=== PATIENT | female | born 1950 | race Caucasian/White ===

== ENCOUNTER → 2021-03-27 13:47 | Outpatient (CLI) | payer MEDICARE, OTHER, SELFPAY ==
--- NOTE | 2021-03-27 13:58 | RAD_ITS ---
STUDY: X-RAY - CERVICAL SPINE REASON FOR EXAM: Female, 70 years old. NECK PAIN TECHNIQUE: 4 view(s) of the cervical spine were obtained. COMPARISON: None FINDINGS: Normal anterior atlantoaxial articulation. Normal odontoid process. There is straightening of the normal cervical lordosis. There is multi-level endplate spondylosis. There is multi-level degenerative disc disease with multilevel disc space narrowing. Facet joint osteoarthritis. The soft tissue structures are unremarkable. RAD/Cerv Spine 2 or 3 Views IMPRESSION: Straightening of the normal cervical lordosis. Multilevel disc space narrowing and spondylosis. Electronically Signed: Ankit Mosher MD at 13:51 EDT , Service support ,
== END ==
PROVIDERS: PCP Nurse Practitioner Family; Referring Provider Anesthesiology Pain Medicine; Visit Provider Anesthesiology Pain Medicine
DX: M54.2 Cervicalgia (principal)
CPT/HCPCS: 72040

== ENCOUNTER → 2021-05-23 13:01 | Outpatient (CLI) | payer MEDICARE, OTHER, SELFPAY ==
--- NOTE | 2021-05-23 13:14 | MRI_ITS ---
EXAM: MR Lumbar Spine Without Intravenous Contrast CLINICAL INDICATION: 70 years old, Female; BACK PAIN/ LEG PAIN TECHNIQUE: Multiplanar and multisequence MR images of the lumbar spine without intravenous contrast. This report was created using [employer] report [employer] technology. COMPARISON: None. FINDINGS: Vertebrae: Portable changes in the endplates of the lower lumbar spine. Hemangiomas in T10 and L2. Degenerative facet arthropathy mid and lower lumbar spine. Modic changes in the endplates of the lower lumbar spine. Vertebral body heights are preserved. Normal alignment. No spondylolisthesis. There is preservation of the normal lumbar lordosis. Spinal cord: Conus medullaris tip at L1. Soft tissues: Unremarkable. DISCS/SPINAL CANAL/NEURAL FORAMINA: L1-L2: Unremarkable. Normal disc height and morphology. Normal spinal canal, lateral recesses and neuroforamina. L2-L3: Mild spinal canal stenosis at L2-L3 due to a degenerative disc bulge, ligamentum flavum and facet hypertrophy. L3-L4: Moderate spinal canal stenosis at L3-L4 due to a degenerative disc bulge, ligamentum flavum and facet hypertrophy. L4-L5: Severe spinal canal stenosis at L4-L5 due to a degenerative disc bulge, ligamentum flavum and facet hypertrophy. L5-S1: Moderate spinal canal stenosis at L5-S1 due to a degenerative disc bulge, ligamentum flavum and facet hypertrophy. Moderate right neural foraminal stenosis at L5-S1 due to a degenerative disc bulge and bony hypertrophy. Moderate left neural foraminal stenosis at L5-S1 due to a degenerative disc bulge and bony hypertrophy. MRI/Spine Lumbar (Routine) IMPRESSION: 1. Mild spinal canal stenosis at L2-L3 due to a degenerative disc bulge, ligamentum flavum and facet hypertrophy. 2. Moderate spinal canal stenosis at L3-L4 due to a degenerative disc bulge, ligamentum flavum and facet hypertrophy. 3. Severe spinal canal stenosis at L4-L5 due to a degenerative disc bulge, ligamentum flavum and facet hypertrophy. 4. Moderate spinal canal stenosis at L5-S1 due to a degenerative disc bulge, ligamentum flavum and facet hypertrophy. 5. Moderate right neural foraminal stenosis at L5-S1 due to a degenerative disc bulge and bony hypertrophy. 6. Moderate left neural foraminal stenosis at L5-S1 due to a degenerative disc bulge and bony hypertrophy. ASSESSMENT: ABNORMAL report - There are abnormal findings in this report which may be related or unrelated to the reason for the exam. Electronically Signed: Miguel Angel Zambrano MD at 0:03 EDT Tel , Service support ,
== END ==
PROVIDERS: PCP Nurse Practitioner Family; Referring Provider Anesthesiology Pain Medicine; Visit Provider Anesthesiology Pain Medicine
DX: M54.9 Dorsalgia, unspecified (principal); M79.604 Pain in right leg
CPT/HCPCS: 72148

== ENCOUNTER 2021-11-04 12:41 | Outpatient (CLI) | payer MEDICARE, OTHER, SELFPAY ==
[2021-11-04 13:55] LABS: Amphetamine Urine VISTA NEGATIVE (<1000 ng/mL); Barbiturate Urine VISTA NEGATIVE (< 200 ng/mL); Benzodiazepine Urine VISTA NEGATIVE (< 200 ng/mL); Cocaine Urine VISTA NEGATIVE (< 300 ng/mL); Ecstacy Urine VISTA NEGATIVE (< 500 ng/mL); Methadone Urine VISTA NEGATIVE (< 300 ng/mL); PCP Urine VISTA NEGATIVE (< 25 ng/mL); THC Urine VISTA NEGATIVE (< 50 ng/mL); Vista UDS pH Range 5
== END 2021-11-04 23:59 | disposition home or self-care (01) ==
PROVIDERS: PCP Nurse Practitioner Family; Referring Provider Anesthesiology Pain Medicine; Visit Provider Anesthesiology Pain Medicine
DX: F11.20 Opioid dependence, uncomplicated (principal)
CPT/HCPCS: 80307

== ENCOUNTER → 2022-07-10 | Outpatient (CLI) | payer MEDICARE, OTHER, SELFPAY ==
[2022-07-10 17:20] LABS: Amphetamine Urine VISTA NEGATIVE (<1000 ng/mL); Barbiturate Urine VISTA NEGATIVE (< 200 ng/mL); Benzodiazepine Urine VISTA NEGATIVE (< 200 ng/mL); Cocaine Urine VISTA NEGATIVE (< 300 ng/mL); Ecstacy Urine VISTA NEGATIVE (< 500 ng/mL); Methadone Urine VISTA NEGATIVE (< 300 ng/mL); PCP Urine VISTA NEGATIVE (< 25 ng/mL); THC Urine VISTA NEGATIVE (< 50 ng/mL); Vista UDS pH Range 4
== END | disposition home or self-care (01) ==
PROVIDERS: PCP Nurse Practitioner Family; Visit Provider Anesthesiology Pain Medicine
DX: F11.20 Opioid dependence, uncomplicated (principal)
CPT/HCPCS: 80307

== ENCOUNTER → 2023-05-19 | Outpatient (CLI) | payer MEDICARE, OTHER, SELFPAY ==
--- NOTE | 2023-05-19 11:00 | PET_ITS ---
EXAMINATION: FDG PET-CT INDICATIONS: A 72-year-old female with [place] cell carcinoma presenting for apparent initial staging examination. COMPARISON EXAMINATION: None available. INDEX LESION SIZE SUV INTERPRETATION Left hemipelvis, left inguinal region 28.9 mm largest 8.2 max Fulfills quantitative criteria for viable neoplasm. Right iliac wing 5.2 max Fulfills quantitative criteria for viable neoplasm. TECHNIQUE: Following the intravenous administration of 14.90 mCi of F-18 deoxyglucose via the left antecubital fossa, multiplanar image acquisitions of the head, neck, chest, abdomen and pelvis to level of mid-thigh, lower extremities obtained at one hour post radiopharmaceutical administration contemporaneously interpreted with the current CT of the head, neck, chest, abdomen and pelvis to level of mid-thigh, lower extremities dated 05/19/23 via coregistration reveal: SERUM GLUCOSE LEVEL: 153 mg/dl. HEIGHT: 60 inches. WEIGHT: 160 lbs. FINDINGS: Head/Neck: There is no evidence of abnormal increased glucose metabolism in the pharyngeal mucosal space, parapharyngeal space, bilateral-lateral and anterior neck, hypopharynx and distribution of the laryngeal structures. The visualized portion of the cerebral cortical-subcortical structures demonstrate symmetric and preserved glucose metabolism. CHEST: There is no quantitative scintigraphic evidence of abnormal increased glucose metabolism within the context of the bilateral hemithorax pulmonary parenchyma, right and left hemithoracic pleural interface, mediastinal structures and thoracic perihilum.? Prominent radiopharmaceutical concentration is identified in the left ventricular myocardium commensurate with the [place]. Pertinent chest CT findings are as follows. Scattered mediastinal and bilateral axillary soft tissue densities with fatty hilus are ametabolic. There is atherosclerotic calcification defined in the thoracic aorta without evidence of dilatation-aneurysm formation. Coronary arterial calcification is observed. There are no parenchymal densities-nodules defined in the right and left hemithorax with quantitatively significant increased FDG uptake. Abdomen/Pelvis: Facilitated radiopharmaceutical concentration is defined in the left hemipelvis and inguinal regions in the left common iliac, the left external and internal lymph node distributions, the left inguinal lymph nodes. The calculated maximum standard uptake value is 8.2. The maximum axial diameter of the corresponding largest soft tissue density is 28.9 mm. Normal physiologic distribution of the radiopharmaceutical is apparent in the hepatic and splenic parenchyma, both renal units, bladder and visualized intestinal tract. Diffuse radiopharmaceutical concentration is noted in all four quadrants of the abdomen and pelvis. Abdomen and pelvis CT findings are as follows. There is atherosclerotic calcification defined in the abdominal aorta without evidence of dilatation-aneurysm formation. Pelvic arterial calcification is observed. Additional left and visualized right subcentimeter inguinal soft tissue densities are ametabolic. The uterus appears surgically absent. Skeletal: Facilitated uptake is noted in the right iliac wing. The calculated maximum standard uptake value is 5.2. PET/PET/CT Tumor WB Initial IMPRESSION: 1. ABNORMAL EXAMINATION INDICATIVE OF MALIGNANT-VIABLE NEOPLASM. 2. Facilitated radiopharmaceutical concentration defined in the left hemipelvis and inguinal regions fulfill quantitative criteria for malignant transformation. 3. Labeled glucose uptake noted in the right iliac wing fulfills quantitative criteria for viable osseous neoplasia. (Casey et al, Clinical Nuclear Medicine, 29:161, 2004). Electronic Signature Chavez Araiza D.O. Accurate Quantification of SUVs for this report are calculated using the exclusive [employer], ([place]. Patent No. [phone] patent [phone] ). Standardization and correction of the FDG SUV metric exclusively available with [employer] intellectual property, allow for vendor non-specific objective quantitative sequential FDG PET-CT comparison and otherwise unobtainable optimization of the sensitivity and specificity of the examination. [email or web address] Electronically Signed: Chavez Araiza DO at 9:13 EDT ,
== END | disposition home or self-care (01) ==
LOC: ONC 10:33
PROVIDERS: PCP Nurse Practitioner Family; Referring Provider Surgery Surgical Oncology; Visit Provider Surgery Surgical Oncology
DX: C4A.72 Merkel cell carcinoma of left lower limb, including hip (principal)
CPT/HCPCS: 78816; A9552

== ENCOUNTER → 2023-05-26 | Outpatient (CLI) | payer MEDICARE, OTHER, SELFPAY ==
[2023-05-26 16:38] LABS: Amphetamine Urine VISTA NEGATIVE (<1000 ng/mL); Barbiturate Urine VISTA NEGATIVE (< 200 ng/mL); Benzodiazepine Urine VISTA NEGATIVE (< 200 ng/mL); Cocaine Urine VISTA NEGATIVE (< 300 ng/mL); Ecstacy Urine VISTA NEGATIVE (< 500 ng/mL); Methadone Urine VISTA NEGATIVE (< 300 ng/mL); PCP Urine VISTA NEGATIVE (< 25 ng/mL); THC Urine VISTA NEGATIVE (< 50 ng/mL); Vista UDS pH Range 6
== END | disposition home or self-care (01) ==
LOC: LAB 15:32
PROVIDERS: PCP Nurse Practitioner Family; Referring Provider Anesthesiology Pain Medicine; Visit Provider Anesthesiology Pain Medicine
DX: F11.20 Opioid dependence, uncomplicated (principal)
CPT/HCPCS: 80307

== ENCOUNTER → 2023-06-12 | Outpatient (CLI) | payer MEDICARE, OTHER, SELFPAY ==
[2023-06-12] VITALS (9 sets, daily range): BP systolic 99–186; BP diastolic 66–95; PULSE 75–83; RESP 12–18; TEMP 36.3; O2SAT 93–96; BMI 32.2
--- NOTE | 2023-06-12 | ASPIGT_PTH ---
PATIENT: MARIA EUGENIA SHOEMAKER LOC: CT U#:[id number] AGE/SX: 72/F ROOM: RE06/12/[address]: Dr. Holden Orr DO : 1950 BED: DIS: 06/12/2023 SPEC #: [id number] RECD: 06/12/23 10:08 STATUS: CARLYLE RELane #: [id number] SUSAN: 06/12/23 00:[address]: Holden Orr DEPT: SURGICAL PATHOLOGY RECD BY: Keisha Hunt ENTERED: 06/12/23 10:09 SP TYPE: ASP RAD OTHR DR: Adeline Squires, DRUM BUILDER-C Tissues: Lymph node of pelvis, NOS Procedures: FNA Specimen Adequacy Special Stain Group II Surgery Specimen Level IV Surgery Specimen Level V Imprint (control) HEADER OPERATION: Left pelvic lymph node, CT-guided biopsy PRE-OP DIAGNOSIS: [place] cell carcinoma left lower limb TISSUE SUBMITTED: Left pelvic lymph node 18-gauge x7 MICROSCOPIC DIAGNOSIS Left pelvic lymph node, CT-guided core biopsy: Metastatic small neuroendocrine carcinoma. See comment. SJ:rg 06/15/2023 COMMENT The specimen is evaluated at the time of biopsy by Dr. Ramirez. Immediate Evaluation = Numerous lymphocytes mixed with atypical cells noted. Immunohistochemistry ([id number]) supports the above diagnosis. IHC is negative for CK20 antibody, hence, does not favor [place] cell carcinoma. Flow cytometry study from [facility] shows no evidence of B-cell or T-cell lymphoma. Correlation with clinical, radiologic findings and appropriate follow up are necessary. This case was discussed with Dr. Orr on 06/18/2023. Case has been reviewed in consultation with Dr. Perez who concurs with the above diagnosis. IDC:AM MICROSCOPIC DESCRIPTION Slides are reviewed. GROSS DESCRIPTION Received in fixative is one container labeled with the patient's name and designated left pelvic lymph node. The specimen consists of multiple irregular fragments of light connor soft tissue that in aggregate measure 1.0 x 0.3 x 0.1 cm. The specimen is totally submitted in one cassette. Six touch imprints are prepared at the time of core biopsy. / SJ:rg 06/12/2023 TC:0 [facility]: 68999, [id number] ADDENDUM ADDENDUM ADDENDUM ADDENDUM ADDENDUM ADDENDUM ADDENDUM ADDENDUM ADDENDUM ADDENDUM 07/16/2023 09:33 ADDENDUM 07/16/2023 09:33 ADDENDUM 07/16/2023 09:33 ADDENDUM 07/16/2023 09:33 ADDENDUM 07/16/2023 09:33 This addendum is added to incorporate an outside pathology consultation report. The case was examined at [facility] (#[id number]) and the following diagnosis was rendered. Lymph node, left pelvic, biopsy: Metastatic high-grade neuroendocrine carcinoma. Please see complete above mentioned consultation report in EMR
--- NOTE | 2023-06-12 | IMM_PTH ---
PATIENT: MARIA EUGENIA SHOEMAKER LOC: CT U#:[id number] AGE/SX: 72/F ROOM: RE06/12/[address]: Dr. Holden Orr DO : 1950 BED: DIS: 06/12/2023 SPEC #: [id number] RECD: 06/15/23 14:37 STATUS: SOUTrae REQ #: [id number] SUSAN: 06/12/23 00:[address]: Holden Orr DEPT: IMMUNOHISTOCHEMISTRY RECD BY: Tiffanie Cook ENTERED: 06/15/23 14:39 SP TYPE: IMMUNO OTHR DR: Adeline Squires, REPRODUCTIVE HEALTHCARE ASSISTANT-C Tissues: Lymph node of pelvis, NOS Procedures: Synapto (add) CD45 (add) CD56 (add) CHROMO (add) CK20 (add) CK7 (add) CK8 (add) KI-67 (add) TTF1 (add) Pankeratin (initial) PHYSICIAN & [address] [address] SPECIMEN INFORMATION: Tissue Source: Left pelvic lymph node Clinical Info: [place] cell carcinoma left lower limb Specimen Number: [id number] CPT code: 11543, 41848 x9 METHODOLOGY: Deparaffinized sections of prefer/formalin-fixed tissue or PAP/DQ stained slides are incubated with monoclonal/polyclonal antibodies/oligonucleotide probes. Localization is made via biotin free immunoperoxidase method. Appropriate controls are performed and reacted as expected. Results on target cell population are indicated in the following table: RESULTS: ANTIBODY / CLONE RESULT AE1-3 (AE1/AE3/PCK26) positive CK7 (OV-TL12/30) positive CK8 (44ashtQ30) positive CK20 (KS20.8) negative CD45 (RP2/18) negative CD56 (123C3.D5) positive Chromo (LK2H10) positive Synapto (polyclonal) positive TTF-1 (8G7G3/1) negative Ki-67 (30-9) positive, high These tests were developed and their performance characteristics determined by [facility]. They may not have been cleared or approved by the U.S. Food and Drug Administration. The FDA has determined that such clearance or approval is not necessary. The above immunohistochemical/dualISH markers are ordered and reviewed by the Pathologist. INTERPRETATION: Left pelvic lymph node, CT-guided biopsy: Metastatic neuroendocrine carcinoma. See comment. Adonis 06/16/2023 Comment: Clinical correlation is necessary. Case has been reviewed in consultation with Dr. Perez who concurs with the above diagnosis. IDC:AM
--- NOTE | 2023-06-12 07:55 | CT_ITS ---
PROCEDURE: CT GUIDED biopsy of the left inguinal lymph node. DATE: June 12, 2023. INDICATION: Female, 72 years old. History of [place] cell carcinoma. PHYSICIAN: Ankit Mosher M.D. RADIATION DOSAGE (If Supplied By Facility): CTDIvol = ( 20.2 ) mGy, DLP = ( 532.77 ) mGycm. Individualized dose optimization techniques were utilized. PROCEDURE: The risks, benefits, and alternatives to the procedure were explained to the patient. The specific risk of hemorrhage requiring further treatment or intervention was detailed and accepted. Follow-up instructions were discussed with the patient as well. Written informed consent was obtained. The patient was brought into the CT suite and placed in the supine. . An appropriate entry site was identified. The overlying skin was prepped and draped in the usual sterile fashion. 1% lidocaine was administered subcutaneously for local anesthesia.. Conscious sedation was performed. The patient received 3 mg of Versed and 75 mcg of fentanyl intravenously. Conscious sedation was started at 9:21 AM and terminated at 9:46 AM. The patient was independently monitored by the department nurse. Under CT guidance, a total of 6 passes were performed utilizing an 18-gauge core biopsy needle system. The specimens were then placed in the appropriate fluid and transported to the laboratory for analysis. Hemostasis was obtained. The patient tolerated the procedure well without immediate complications. CT/Biopsy/Inj or Needle Placement IMPRESSION: Successful CT guided biopsy of a left inguinal lymph node, as described above. The conscious sedation protocol was followed. Electronically Signed: Ankit Mosher MD at 10:25 EDT ,
[2023-06-12 08:20] LABS: Absolute Lymphocyte Count 0.95 X10^3/uL (0.83-4.51); Absolute Neutrophil Count 11.3 X10^3/uL (2.0-7.7); Basophil# 0.03 X10^3/uL; Basophil% 0.2 % (0-1); Eosinophil# 0.03 X10^3/uL; Eosinophils% 0.2 % (0-5); Hematocrit 37.5 % (37-47); Hemoglobin 11.9 g/dL (12.0-15.0); Lymphocyte # 0.95 X10^3/ul (0.83-4.51); Lymphocyte % 7.1 % (19-41); Mean Corp Hgb Conc 31.7 g/dL (32-36); Mean Corpuscular Hgb 31.7 pg (27.0-32.0); Mean Platelet Vol. 10.6 fl (6.2-12.0); Monocyte# 0.92 X10^3/uL; Monocyte% 6.9 % (0-10); NRBC Flagged by Analyzer 0 % (0-5); Neutrophil # 11.33 X10^3/uL (2.7-7.7); Neutrophil % 84.6 % (47-70); Platelet Count 275 K/mm3 (150-450); RBC Distribution Width CV 12.5 % (11.6-14.6); RBC Distribution Width SD 45.8 fl (35.1-43.9); Red Blood Count 3.75 M/mm3 (4.2-5.4); White Blood Count 13.4 K/mm3 (4.4-11.0)
[2023-06-12 08:31] LABS: International Normalized Ratio 1.1; Prothrombin Time (Protime)PT. 13.7 SECONDS (11.7-14.9)
[2023-06-12 08:32] LABS: Partial Thromboplast Time 31.4 Seconds (24.1-36.2)
[2023-06-12] MEDS: 0.9% Normal Saline (250mL Bag) 250 ML 15 ML IV (09:21)
[2023-06-12] MEDS: Midazolam 2 MG/2 ML Syringe IV ×2 (09:21→09:35)
[2023-06-12] MEDS: fentaNYL 100 MCG/2 ML Ampul IV ×2 (09:22→09:35)
[2023-06-12] MEDS: Lidocaine 2% (20 ml mdv) 20 ML Vial INFILT (09:36)
== END | disposition home or self-care (01) ==
PROVIDERS: Radiology Diagnostic Radiology; PCP Nurse Practitioner Family; Referring Provider Internal Medicine Hematology & Oncology; Visit Provider Internal Medicine Hematology & Oncology
DX: C4A.72 Merkel cell carcinoma of left lower limb, including hip (principal)
CPT/HCPCS: 38505; 36415; 77012; 85025; 85610; 85730; 88172; 88305; 88307; 88313; 88341; 88342; 99156; J7050; A4216

== ENCOUNTER → 2023-07-02 | Outpatient (CLI) | payer MEDICARE, OTHER, SELFPAY ==
--- NOTE | 2023-07-02 | SENDIN_PTH ---
PATIENT: MARIA EUGENIA SHOEMAKER LOC: LAB U#:[id number] AGE/SX: 72/F ROOM: RE07/02/[address]: Dr. Holden Orr DO : 1950 BED: DIS: 07/02/2023 SPEC #: [id number] RECD: 07/02/23 10:47 STATUS: CARLYLE REQ #: [id number] SUSAN: 07/02/23 00:[address]: Holden Orr DEPT: SEND IN SLIDES FOR REVIEW RECD BY: Tiffanie Cook ENTERED: 07/02/23 10:48 SP TYPE: SEND IN SL OT DR: Adeline Squires, INDEX CLERK-C Procedures: N/C FOR SEND IN SLIDES
== END | disposition home or self-care (01) ==
LOC: LAB 10:43
PROVIDERS: PCP Nurse Practitioner Family; Visit Provider Internal Medicine Hematology & Oncology
DX: C4A.72 Merkel cell carcinoma of left lower limb, including hip (principal)